=== PATIENT | male | born 1965 | race Caucasian/White ===

== ENCOUNTER 2020-10-03 14:57 | Observation (INO) ==
[2020-10-03] MEDS ORDERED: 0.9 % Sodium Chloride 1,000 ML IVC ONE ×2 (15:29→16:33)
[2020-10-03 15:49] LABS: Basophils # 0.1 K/mcL (0.0-0.2); Basophils % 0.4 %; Eosinophils % 0.1 %; Hematocrit 40.7 % (37.5-50.1); Hemoglobin 14.3 g/dL (12.9-16.9); Immature Granulocytes % 1.4 % (0-4); Lymphocytes # 2.3 K/mcL (0.6-4.6); Lymphocytes % 15.8 %; Mean Corpuscular HGB Conc 35.1 g/dL (31.6-35.5); Mean Corpuscular Hemoglobin 29.4 pg (28.0-33.3); Mean Corpuscular Volume 83.6 fL (83.0-100.0); Mean Platelet Volume 10.7 fL (9.4-12.4); Monocytes # 0.7 K/mcL (0.0-1.3); Neutrophils # 11.2 K/mcL (1.6-8.9); Platelet Count 245 K/mcL (140-400); Red Blood Count 4.87 M/mcL (4.19-5.50); Segmented Neutrophils % 77.3 %; White Blood Count 14.5 K/mcL (4.3-11.1)
[2020-10-03] MEDS ORDERED: Ipratropium/Albuterol Neb 3 ML IH ONE (16:01)
[2020-10-03 16:11] LABS: Calcium 9.3 mg/dL (8.6-10.3); Potassium 3.8 mEq/L (3.5-5.1)
[2020-10-03] MEDS ORDERED: Potassium Chloride 40 MEQ, Lidocaine 1% 2 ML in 0.9 % Sodium Chloride 500 ML IVPB ONE (16:32)
[2020-10-03 16:48] LABS: Bilirubin,Urine Negative (Negative); Blood,Urine Negative (Negative); Clarity,Urine Clear (Clear); Color,Urine Colorless (Yellow); Glucose,Urine (UA) >=1000 mg/dL (Normal); Hyaline Casts,Urine Few per lpf (None Seen); Ketones,Urine Trace mg/dL (Negative); Leukocyte Esterase,Urine Negative (Negative); Mucus,Urine Few per lpf (None-Few); Nitrite,Urine Negative (Negative); Protein,Urine Trace mg/dL (Neg-Trace); RBC,Urine 0-3 per hpf (0-3); Specific Gravity,Urine 1.023 (1.010-1.025); Urobilinogen,Urine Normal (Normal); WBC,Urine 0-3 per hpf (0-3)
[2020-10-03] MEDS ORDERED: Insulin LISPRO 300 UNITS/3 ML VIAL SQ STA (17:01)
[2020-10-03] MEDS ORDERED: Naloxone 0.4 MG/ML INJ IVP PRN (17:33)
[2020-10-03 17:43] LABS: VBG HCO3 26 mEq/L (21-27); VBG PCO2 55 mmHg (41-51); VBG PH 7.29 pH Units (7.32-7.42); VBG PO2 36 mmHg (25-50)
[2020-10-03] MEDS ORDERED: Ipratropium/Albuterol Neb 3 ML IH PRN (18:16)
[2020-10-03] MEDS ORDERED: 0.9 % Sodium Chloride 1,000 ML IVC SCH (18:30)
[2020-10-03] MEDS: Insulin LISPRO 300 UNITS/3 ML VIAL SQ SCH ×2 (18:43→23:49)
[2020-10-03 20:17] LABS: BUN/Creatinine Ratio 24 (6-26); Blood Urea Nitrogen 35 mg/dL (6-20); Calcium 8.4 mg/dL (8.6-10.3); Carbon Dioxide 21 mEq/L (23-29); Chloride 97 mEq/L (98-107); Glucose 410 mg/dL (70-105); Osmolality,Calculated 289 (280-300); Sodium 127 mEq/L (136-145); eGFR For African Americans > 60 (> 60); eGFR For Non-African Americans 50 (> 60)
[2020-10-03] MEDS: Loratadine 10 MG TABLET PO SCH (21:54)
[2020-10-03] MEDS: Budesonide/Formoterol 160/4.5 1 PUFF INH IH SCH (22:04)
[2020-10-04 05:38] LABS: Basophils % 0.4 %; Eosinophils # 0.1 K/mcL (0.0-0.6); Eosinophils % 0.6 %; Hematocrit 35.2 % (37.5-50.1); Hemoglobin 12.6 g/dL (12.9-16.9); Immature Granulocytes % 1.5 % (0-4); Lymphocytes # 3.3 K/mcL (0.6-4.6); Lymphocytes % 34.3 %; Mean Corpuscular HGB Conc 35.8 g/dL (31.6-35.5); Mean Corpuscular Hemoglobin 30.3 pg (28.0-33.3); Mean Corpuscular Volume 84.6 fL (83.0-100.0); Mean Platelet Volume 10.2 fL (9.4-12.4); Monocytes # 0.4 K/mcL (0.0-1.3); Monocytes % 4.6 %; Neutrophils # 5.6 K/mcL (1.6-8.9); Platelet Count 178 K/mcL (140-400); Red Blood Count 4.16 M/mcL (4.19-5.50); Red Cell Distribution Width 12.1 % (11.5-14.5); Segmented Neutrophils % 58.6 %; White Blood Count 9.6 K/mcL (4.3-11.1)
[2020-10-04] MEDS: Insulin LISPRO 300 UNITS/3 ML VIAL SQ SCH ×3 (05:54→18:00)
[2020-10-04 06:04] LABS: BUN/Creatinine Ratio 21 (6-26); Blood Urea Nitrogen 25 mg/dL (6-20); Calcium 8.4 mg/dL (8.6-10.3); Carbon Dioxide 23 mEq/L (23-29); Chloride 101 mEq/L (98-107); Glucose 215 mg/dL (70-105); Osmolality,Calculated 281 (280-300); Potassium 3.6 mEq/L (3.5-5.1); Sodium 130 mEq/L (136-145); eGFR For African Americans > 60 (> 60); eGFR For Non-African Americans > 60 (> 60)
[2020-10-04] MEDS ORDERED: 0.9 % Sodium Chloride 1,000 ML IVC SCH ×2 (07:45→22:00)
[2020-10-04] MEDS: Budesonide/Formoterol 160/4.5 1 PUFF INH IH SCH ×2 (11:23→22:57)
[2020-10-04 12:48] LABS: Estimated Average Glucose 378 mg/dl
[2020-10-04] MEDS ORDERED: Insulin DETEMIR 100 UNIT/ML X5UNITS SQ SCH (21:00)
[2020-10-04] MEDS: Loratadine 10 MG TABLET PO SCH (21:59)
[2020-10-04] MEDS ORDERED: Insulin LISPRO 300 UNITS/3 ML VIAL SQ SCH (22:00)
[2020-10-05 02:54] LABS: Basophils % 0.4 %; Eosinophils # 0.1 K/mcL (0.0-0.6); Eosinophils % 0.6 %; Immature Granulocytes % 1.2 % (0-4); Lymphocytes # 3.5 K/mcL (0.6-4.6); Lymphocytes % 36.9 %; Mean Corpuscular HGB Conc 33.3 g/dL (31.6-35.5); Mean Corpuscular Hemoglobin 29.1 pg (28.0-33.3); Mean Corpuscular Volume 87.4 fL (83.0-100.0); Mean Platelet Volume 10.1 fL (9.4-12.4); Monocytes # 0.6 K/mcL (0.0-1.3); Monocytes % 6.1 %; Neutrophils # 5.1 K/mcL (1.6-8.9); Platelet Count 173 K/mcL (140-400); Red Blood Count 4.12 M/mcL (4.19-5.50); Red Cell Distribution Width 12.1 % (11.5-14.5); Segmented Neutrophils % 54.8 %; White Blood Count 9.4 K/mcL (4.3-11.1)
[2020-10-05 03:08] LABS: BUN/Creatinine Ratio 18 (6-26); Blood Urea Nitrogen 20 mg/dL (6-20); Calcium 8.2 mg/dL (8.6-10.3); Carbon Dioxide 25 mEq/L (23-29); Chloride 104 mEq/L (98-107); Glucose 104 mg/dL (70-105); Osmolality,Calculated 281 (280-300); Potassium 4.2 mEq/L (3.5-5.1); Sodium 134 mEq/L (136-145); eGFR For African Americans > 60 (> 60); eGFR For Non-African Americans > 60 (> 60)
[2020-10-05 07:45] VITALS: BP 146/78
[2020-10-05] MEDS: Insulin LISPRO 300 UNITS/3 ML VIAL SQ SCH (07:48)
[2020-10-05] MEDS: Budesonide/Formoterol 160/4.5 1 PUFF INH IH SCH (09:30)
[2020-10-05] MEDS ORDERED: Tiotropium 18 MCG inhalation IH SCH (10:00)
== END 2020-10-05 10:45 | disposition home or self-care (01) ==
LOC: EMEROOARM 14:57 → 3ANU 14:57 → 3BNU 17:43
PROVIDERS: ADMIT Internal Medicine; ATTEND Internal Medicine